=== PATIENT | male | born 1965 | race Caucasian/White ===

== ENCOUNTER 2023-07-22 19:02 | Emergency (ER) | payer OTHER ==
[~2023-07-22] VITALS: Ht 177.8 cm; Wt 90.0 kg
[2023-07-22 19:07] VITALS: O2SAT 99
[2023-07-22] MEDS ORDERED: ONDANSETRON HCL 4MG/2ML INJ IV STA (19:11)
[2023-07-22] MEDS ORDERED: SODIUM CHLORIDE 0.9% 1,000 ML IV ONE (19:15)
[2023-07-22 21:08] LABS: BASOPHILS % 0.4 % (0.0-2.0); EOSINOPHILS % 0.3 % (0.0-5.0); HEMATOCRIT. 38.1 % (42.0-52.0); HEMOGLOBIN. 13.2 g/dL (14.0-18.0); LYMPHOCYTES % 9.2 % (20.0-50.0); MEAN CORPUSCULAR HEMOGLOBIN 28.8 pg (28.0-32.0); MEAN CORPUSCULAR HGB CONC 34.5 g/dL (31.0-37.0); MEAN CORPUSCULAR VOLUME 83.6 fL (80.0-94.0); MEAN PLATELET VOLUME 8.2 fl (7.4-10.4); MONOCYTES % 5.6 % (2.0-8.0); NEUTROPHILS % 84.5 % (40.0-76.0); PLATELET 244 x1000/uL (130-400); RED BLOOD CELL COUNT 4.56 mill/uL (4.7-6.1); RED CELL DISTRIBUTION WIDTH 13.2 % (11.6-14.6); WHITE BLOOD COUNT 11.7 x1000/uL (4.5-11.0)
[2023-07-22 21:11] LABS: CHLORIDE 106 mEq/L (98-107); INDEX HEMOLYSI 1 (1-3); INDEX ICTERIC 1 (1-4); INDEX LIPEMIC 1 (1-3); POTASSIUM 3.7 mEq/L (3.5-5.1); SODIUM 133 mEq/L (136-145)
[2023-07-22 21:14] LABS: ALBUMIN 3.3 g/dL (3.4-5.0); CALCIUM 8.3 mg/dL (8.5-10.1); CARBON DIOXIDE 26 mEq/L (21-32); GLUCOSE 163 mg/dL (70-105); UREA NITROGEN BLOOD 10 mg/dL (7-21)
[2023-07-22 21:20] LABS: ALANINE AMINOTRANSFERASE 22 IU/L (13-61); ASPARTATE AMINOTRANSFERASE 14 IU/L (15-37); BILIRUBIN TOTAL 0.8 mg/dL (0.1-1.0); CREATININE 0.9 mg/dL (0.6-1.3); NT PRO B-TYPE NATRIURETIC PEP 610 pg/mL (5-125); PROTEIN TOTAL 7.8 g/dL (6.0-8.3); TROPONIN I HIGH SENSITIVITY 19 ng/L (<78)
[2023-07-22] MEDS ORDERED: ASPIRIN 81MG TABLET PO ONE (21:45)
[2023-07-22 23:30] LABS: TROPONIN I HIGH SENSITIVITY 18 ng/L (<78)
[2023-07-23 04:15] VITALS: BP 115/67; PULSE 77; RESP 20; TEMP 98.3
== END 2023-07-23 05:05 | disposition short-term general hospital (02) ==
LOC: ER 19:02 → CANBEDREQ 07-23 06:50
DX: U07.1 COVID-19 (principal); R55 Syncope and collapse; I95.9 Hypotension, unspecified
CPT/HCPCS: 80053; 83880; 85025; 84484; 36415; 71045; 93005; 96361; 96374; 99285; 87426; Z7610 ×2; J2405; J7030; C9803